=== PATIENT | female | born 1980 | race Two or more races ===

== ENCOUNTER → 2017-01-10 | Outpatient (CLI) | payer OTHER ==
[2017-01-10 12:22] LABS: ALBUMIN 3.7 g/dL (3.4-5.0); ALKALINE PHOSPHATASE 100 U/L (46-116); ALT/SGPT 91 U/L (14-59); AST/SGOT 43 U/L (15-37); CALCIUM 8.7 mg/dL (8.5-10.1); CARBON DIOXIDE 23.8 mmol/L (21-32); CHLORIDE SERUM 104 mmol/L (98-107); CHOLESTEROL 198 mg/dL (<200); CREATININE SERUM 0.8 mg/dL (0.6-1.0); GFR1 > 60 mL/min; GLUCOSE SERUM 104 mg/dL (74-106); POTASSIUM SERUM 3.9 mmol/L (3.5-5.1); SODIUM SERUM 139 mmol/L (136-145); TOTAL PROTEIN, SERUM 7.9 g/dL (6.4-8.2)
[2017-01-10 12:24] LABS: CHOLESTEROL/HDL RATIO 8.6; HDL CHOLESTEROL 23 mg/dL (40-60); TRIGLYCERIDES 549 mg/dL (<150)
== END | disposition home or self-care (01) ==
LOC: LB 11:44
DX: F25.1 Schizoaffective disorder, depressive type (principal)

== ENCOUNTER → 2017-04-04 | Outpatient (CLI) | payer OTHER ==
[2017-04-04 09:33] LABS: CHOLESTEROL/HDL RATIO 9.4
== END | disposition home or self-care (01) ==
LOC: LB 09:05
DX: K76.89 Other specified diseases of liver (principal)

== ENCOUNTER → 2017-10-10 | Outpatient (CLI) | payer OTHER ==
[2017-10-10 14:01] LABS: CALCIUM 8.8 mg/dL (8.5-10.1); CARBON DIOXIDE 28.1 mmol/L (21-32); CREATININE SERUM 1.2 mg/dL (0.6-1.0); POTASSIUM SERUM 3.8 mmol/L (3.5-5.1)
[2017-10-10 14:05] LABS: CHOLESTEROL/HDL RATIO 9.3
== END | disposition home or self-care (01) ==
LOC: LB 13:11
PROVIDERS: Family Medicine
DX: F25.1 Schizoaffective disorder, depressive type (principal); F41.9 Anxiety disorder, unspecified

== ENCOUNTER → 2018-04-10 | Outpatient (CLI) | payer OTHER ==
[2018-04-10 10:11] LABS: FREE T4 1.22 ng/dL (0.76-1.46)
[2018-04-10 10:13] LABS: CHOLESTEROL/HDL RATIO 7.3
== END | disposition home or self-care (01) ==
LOC: LB 09:20
DX: Z86.39 Personal history of other endocrine, nutritional and metabolic disease (principal)
CPT/HCPCS: 82947; 84439